=== PATIENT | male | born 1950 | race Caucasian/White ===

== ENCOUNTER 2017-06-26 06:56 | Inpatient (IN) | payer OTHER ==
[~2017-06-26] VITALS: Ht 172.7 cm; Wt 86.4 kg
[~2017-06-26 06:56] MED LIST: ACEDIPPM PO; ACET500 PO; ALBUIS INH; ALGIN; APRE80 PO; ASCO1ER PO; BUDE6HFA INH; CEFU500 PO; CHLO25 PO; CIPR500 PO; CLON.5; CLON1 PO; CYAN1000 PO; DULO30 PO; ENSURE COMPLET237 ML PO; FERR325 PO; FLUSAL5005 IH; FOLI1 PO; FORMOTEROL; GABA600 PO; LEVFLO500 PO; LORA1 PO; MAGOXI400 PO; MIRT30 PO; MULVITA PO; MULVITMIND PO; MVI; NICO21TP TOP; OMEGA-3; OMEP20ER PO; ONDA4 PO; ONDA4ODT MM; ONDA8ODT MM; Omeprazole20 M1 PO; QUET300 PO; RANI150 PO; ROPI1 PO; STRESS FORMULA; TERA5 PO; TERAZOSIN PO; THEO300ERA PO; THERAPEUTIC-M1 EAC3 PO; TIOT18 IH; TRAZ100 PO; VENL37.5 PO; VENL75ER PO; VICKS NYQUIL; VITAMIN B COMPLEX; VITB100 PO; [UNRECOGNIZED DRUG - CODE] PO; [UNRECOGNIZED DRUG - OTHER]; [UNRECOGNIZED DRUG - OTHER]
[2017-06-26 07:41] LABS: BASOPHILS ABSOLUTE AUTO 0.01 K/mm3 (0.00-0.23); BASOPHILS PERCENT AUTO 0 % (0-2); EOSINOPHILS PERCENT AUTO 0 % (0-6); Hematocrit 34.4 % (37.0-53.0); Hemoglobin 11.4 g/dL (13.5-17.5); IMMATURE GRAN ABSOLUTE AUTO 0.08 K/mm3 (0.00-0.10); IMMATURE GRAN PERCENT AUTO 1 % (0-1); LYMPHOCYTES ABSOLUTE AUTO 0.72 K/mm3 (0.84-5.20); LYMPHOCYTES PERCENT AUTO 5 % (21-46); MONOCYTES PERCENT AUTO 9 % (4-13); Mean Corpuscular HGB 31.9 pg (26.0-34.0); Mean Corpuscular HGB Conc 33.1 g/dL (31.5-36.5); Mean Corpuscular Volume 96 fL (80-100); Mean Platelet Volume 11.1 fL (9.1-12.4); NEUTROPHILS ABSOLUTE AUTO 13.68 K/mm3 (1.96-9.15); NEUTROPHILS PERCENT AUTO 86 % (41-73); Platelet Count 139 K/mm3 (150-400); RDW Coefficient Variation 13.2 % (11.7-14.2); RDW Standard Deviation 46.5 fL (35.1-46.3); Red Blood Cell Count 3.57 M/mm3 (4.30-5.90); White Blood Cell Count 15.89 K/mm3 (4.00-11.30)
[2017-06-26 07:55] LABS: Alanine Aminotransfer (ALT/SGP 32 U/L (12-78); Albumin, Blood 3.2 g/dL (3.4-5.0); Alk Phos 122 U/L (50-136); Anion Gap 13 mmol/L (6-16); Aspartate Aminotrans (AST/SGOT 32 U/L (12-37); Bilirubin, Total 0.9 mg/dL (0.1-1.0); Blood Urea Nitrogen 52 mg/dL (8-24); Bun/Creatinine Ratio 43.7 (12.0-20.0); CO2, Blood 28 mmol/L (21-32); Calcium, Blood 7.9 mg/dL (8.5-10.1); Chloride, Blood 100 mmol/L (98-108); Creatinine, Blood 1.19 mg/dL (0.60-1.20); Globulin, Blood 3.3 g/dL (2.2-4.0); Glomerular Filtration Rate >60 (60-); Glucose, Blood 236 mg/dL (70-99); Potassium, Blood 3.9 mmol/L (3.5-5.5); Sodium, Blood 141 mmol/L (136-145); Total Protein, Blood 6.5 g/dL (6.4-8.2)
[2017-06-26 07:59] LABS: International Normalized Ratio 1.07; Prothrombin Time Results 11.2 Sec (9.7-11.5)
[2017-06-26 08:34] LABS: Source, Urine Voided
[2017-06-26 08:51] LABS: Bilirubin, Urine Neg (Neg); Blood, Urine 1+ (Neg); Glucose Qualitative, Urine Neg (Neg); Ketones, Urine 1+ (Neg); Leukocyte Esterase, Urine 1+ (Neg); Nitrite, Urine Neg (Neg); Protein, Urine 2+ (Neg); Specific Gravity, Urine 1.025 (1.003-1.022); Urobilinogen, Urine 1+ (Normal)
[2017-06-26 09:07] LABS: Appearance, Urine Hazy (Clear); Color, Urine Yellow (P-Yellow)
[2017-06-26 09:15] LABS: Red Blood Cells, Urine 0-2 /hpf (0-2); White Blood Cells, Urine 0-2 /hpf (0-5)
[2017-06-26 09:18] LABS: Bacteria Few /hpf; Squamous Epithelial Cells Few /hpf (Few)
[2017-06-26 14:42] LABS: Hematocrit 22.1 % (37.0-53.0); Hemoglobin 7.5 g/dL (13.5-17.5); Mean Corpuscular HGB 31.9 pg (26.0-34.0); Mean Corpuscular HGB Conc 33.9 g/dL (31.5-36.5); Mean Corpuscular Volume 94 fL (80-100); Mean Platelet Volume 10.8 fL (9.1-12.4); Platelet Count 113 K/mm3 (150-400); RDW Coefficient Variation 13.4 % (11.7-14.2); RDW Standard Deviation 45.8 fL (35.1-46.3); Red Blood Cell Count 2.35 M/mm3 (4.30-5.90)
[2017-06-26 16:11] LABS: Magnesium, Blood 1.7 mg/dL (1.6-2.4); Phosphorus, Blood 1.9 mg/dL (2.5-4.9)
[2017-06-26 20:24] LABS: Hematocrit 20.7 % (37.0-53.0); Hemoglobin 7.1 g/dL (13.5-17.5)
[2017-06-27 00:54] LABS: Hematocrit 24.7 % (37.0-53.0); Hemoglobin 8.5 g/dL (13.5-17.5)
[2017-06-27 04:58] LABS: BASOPHILS ABSOLUTE AUTO 0.01 K/mm3 (0.00-0.23); BASOPHILS PERCENT AUTO 0 % (0-2); EOSINOPHILS PERCENT AUTO 0 % (0-6); Hematocrit 24.3 % (37.0-53.0); Hemoglobin 8.5 g/dL (13.5-17.5); IMMATURE GRAN ABSOLUTE AUTO 0.08 K/mm3 (0.00-0.10); IMMATURE GRAN PERCENT AUTO 1 % (0-1); LYMPHOCYTES ABSOLUTE AUTO 2.02 K/mm3 (0.84-5.20); LYMPHOCYTES PERCENT AUTO 16 % (21-46); MONOCYTES ABSOLUTE AUTO 1.07 K/mm3 (0.16-1.47); MONOCYTES PERCENT AUTO 8 % (4-13); Mean Corpuscular HGB 30.2 pg (26.0-34.0); Mean Platelet Volume 10.9 fL (9.1-12.4); NEUTROPHILS ABSOLUTE AUTO 9.73 K/mm3 (1.96-9.15); NEUTROPHILS PERCENT AUTO 75 % (41-73); NRBC ABSOLUTE 0.03 K/mm3 (0.00-0.02); NRBC Auto 0.3 /100 WBC (0.0-0.2); Platelet Count 70 K/mm3 (150-400); RDW Coefficient Variation 15.2 % (11.7-14.2); RDW Standard Deviation 47.6 fL (35.1-46.3); Red Blood Cell Count 2.81 M/mm3 (4.30-5.90); White Blood Cell Count 12.91 K/mm3 (4.00-11.30)
[2017-06-27 04:59] LABS: Mean Corpuscular Volume 87 fL (80-100)
[2017-06-27 05:14] LABS: Magnesium, Blood 1.8 mg/dL (1.6-2.4)
[2017-06-27 05:53] LABS: Albumin/Globulin Ratio 1.1 (0.8-1.8); Bilirubin, Total 0.6 mg/dL (0.1-1.0); Bun/Creatinine Ratio 37.2 (12.0-20.0); Creatinine, Blood 1.45 mg/dL (0.60-1.20); Globulin, Blood 1.9 g/dL (2.2-4.0); Phosphorus, Blood 2.4 mg/dL (2.5-4.9); Potassium, Blood 4.3 mmol/L (3.5-5.5)
[2017-06-27 05:54] LABS: Calcium, Blood 6.2 mg/dL (8.5-10.1); Total Protein, Blood 3.9 g/dL (6.4-8.2)
[2017-06-27 12:02] LABS: Hematocrit 22.4 % (37.0-53.0); Hemoglobin 7.7 g/dL (13.5-17.5)
[2017-06-27 18:36] LABS: Hematocrit 20.9 % (37.0-53.0); Hemoglobin 7.2 g/dL (13.5-17.5)
[2017-06-28 03:30] LABS: Hematocrit 20.2 % (37.0-53.0)
[2017-06-29 05:26] LABS: BASOPHILS ABSOLUTE AUTO 0.02 K/mm3 (0.00-0.23); BASOPHILS PERCENT AUTO 0 % (0-2); EOSINOPHILS ABSOLUTE AUTO 0.17 K/mm3 (0.00-0.68); EOSINOPHILS PERCENT AUTO 3 % (0-6); Hematocrit 23.6 % (37.0-53.0); Hemoglobin 8.2 g/dL (13.5-17.5); IMMATURE GRAN ABSOLUTE AUTO 0.17 K/mm3 (0.00-0.10); IMMATURE GRAN PERCENT AUTO 3 % (0-1); LYMPHOCYTES ABSOLUTE AUTO 1.64 K/mm3 (0.84-5.20); LYMPHOCYTES PERCENT AUTO 25 % (21-46); MONOCYTES ABSOLUTE AUTO 0.55 K/mm3 (0.16-1.47); MONOCYTES PERCENT AUTO 8 % (4-13); Mean Corpuscular HGB 31.2 pg (26.0-34.0); Mean Corpuscular HGB Conc 34.7 g/dL (31.5-36.5); Mean Platelet Volume 9.8 fL (9.1-12.4); NEUTROPHILS ABSOLUTE AUTO 4.02 K/mm3 (1.96-9.15); NEUTROPHILS PERCENT AUTO 61 % (41-73); NRBC ABSOLUTE 0.15 K/mm3 (0.00-0.02); NRBC Auto 2.2 /100 WBC (0.0-0.2); Platelet Count 105 K/mm3 (150-400); RDW Coefficient Variation 15.9 % (11.7-14.2); RDW Standard Deviation 51.7 fL (35.1-46.3); Red Blood Cell Count 2.63 M/mm3 (4.30-5.90); White Blood Cell Count 6.57 K/mm3 (4.00-11.30)
[2017-06-29 05:28] LABS: Mean Corpuscular Volume 90 fL (80-100)
[2017-06-29 05:50] LABS: Alanine Aminotransfer (ALT/SGP 24 U/L (12-78); Albumin, Blood 2.5 g/dL (3.4-5.0); Alk Phos 66 U/L (50-136); Anion Gap 6 mmol/L (6-16); Aspartate Aminotrans (AST/SGOT 30 U/L (12-37); Bilirubin, Total 0.5 mg/dL (0.1-1.0); Blood Urea Nitrogen 12 mg/dL (8-24); Bun/Creatinine Ratio 14.3 (12.0-20.0); CO2, Blood 26 mmol/L (21-32); Calcium, Blood 6.7 mg/dL (8.5-10.1); Chloride, Blood 112 mmol/L (98-108); Creatinine, Blood 0.84 mg/dL (0.60-1.20); Globulin, Blood 2.5 g/dL (2.2-4.0); Glomerular Filtration Rate >60 (60-); Glucose, Blood 95 mg/dL (70-99); Potassium, Blood 3.2 mmol/L (3.5-5.5); Sodium, Blood 144 mmol/L (136-145)
== END 2017-06-29 13:50 | disposition home or self-care (01) | DRG 381 ==
LOC: ER 06:56 → PCU 10:03 → ICUE 10:03 → MEDS 06-28 18:17 → ENPENDDIS 06-29 12:00 → MEDS 06-29 13:50
PROVIDERS: Emergency Medicine; Hospitalist; Internal Medicine Endocrinology, Diabetes & Metabolism; Internal Medicine Gastroenterology
PROC: 0W3P8ZZ Control Bleeding in Gastrointestinal Tract, Via Natural or Artificial Opening Endoscopic (ICD-10-PCS; 2017-06-26)
PROC: 0DB98ZZ Excision of Duodenum, Via Natural or Artificial Opening Endoscopic (ICD-10-PCS; 2017-06-26)
PROC: 30233N1 Transfusion of Nonautologous Red Blood Cells into Peripheral Vein, Percutaneous Approach (ICD-10-PCS; principal; 2017-06-26 17:00)
DX: K22.11 Ulcer of esophagus with bleeding (principal); D62 Acute posthemorrhagic anemia; I95.9 Hypotension, unspecified; D69.6 Thrombocytopenia, unspecified; K76.6 Portal hypertension; J44.9 Chronic obstructive pulmonary disease, unspecified; F10.239 Alcohol dependence with withdrawal, unspecified; K70.30 Alcoholic cirrhosis of liver without ascites; E87.6 Hypokalemia; F43.10 Post-traumatic stress disorder, unspecified; G47.33 Obstructive sleep apnea (adult) (pediatric); Z93.3 Colostomy status; K21.9 Gastro-esophageal reflux disease without esophagitis; Z79.01 Long term (current) use of anticoagulants; Z85.118 Personal history of other malignant neoplasm of bronchus and lung; Z92.21 Personal history of antineoplastic chemotherapy; F17.210 Nicotine dependence, cigarettes, uncomplicated; K63.5 Polyp of colon
CPT/HCPCS: 36415; 36430; 36569; 51702; 51798; 74176; 80053; 81001; 83735; 84100; 85014; 85018; 85025; 85027; 85610; 85730; 86850; 86900; 86901; 86923; 93005; 93010; 94762; 96361; 96365; 96366; 96375; 99285; C1751; C1894; C9113; J0696; J2060; J2370; J2405; J3411; J3475; J7030; J7042; J7050; J7120; P9016; Q9968

== ENCOUNTER 2018-06-21 01:49 | Emergency (ER) | payer OTHER, MEDICARE ==
[~2018-06-21] VITALS: Ht 182.9 cm; Wt 113.4 kg
== END 2018-06-21 05:13 | disposition home or self-care (01) ==
LOC: ER 01:49
DX: F41.9 Anxiety disorder, unspecified (principal); Z72.89 Other problems related to lifestyle; Z88.0 Allergy status to penicillin; Z88.2 Allergy status to sulfonamides; Z79.899 Other long term (current) drug therapy; F43.10 Post-traumatic stress disorder, unspecified; F32.9 Major depressive disorder, single episode, unspecified; F17.210 Nicotine dependence, cigarettes, uncomplicated
CPT/HCPCS: 96372; 99283-25; J2060

== ENCOUNTER 2018-07-02 15:49 | Emergency (ER) | payer OTHER, MEDICARE ==
[~2018-07-02] VITALS: Ht 172.7 cm; Wt 83.9 kg
[2018-07-02 16:37] LABS: BASOPHILS ABSOLUTE AUTO 0.03 K/mm3 (0.00-0.23); BASOPHILS PERCENT AUTO 1 % (0-2); EOSINOPHILS ABSOLUTE AUTO 0.01 K/mm3 (0.00-0.68); EOSINOPHILS PERCENT AUTO 0 % (0-6); Hematocrit 42.7 % (37.0-53.0); Hemoglobin 14.1 g/dL (13.5-17.5); IMMATURE GRAN ABSOLUTE AUTO 0.02 K/mm3 (0.00-0.10); IMMATURE GRAN PERCENT AUTO 0 % (0-1); LYMPHOCYTES ABSOLUTE AUTO 1.24 K/mm3 (0.84-5.20); LYMPHOCYTES PERCENT AUTO 20 % (21-46); MONOCYTES ABSOLUTE AUTO 0.64 K/mm3 (0.16-1.47); MONOCYTES PERCENT AUTO 11 % (4-13); Mean Corpuscular HGB 32.5 pg (26.0-34.0); Mean Corpuscular Volume 98 fL (80-100); Mean Platelet Volume 10.7 fL (9.1-12.4); NEUTROPHILS ABSOLUTE AUTO 4.14 K/mm3 (1.96-9.15); NEUTROPHILS PERCENT AUTO 68 % (41-73); Platelet Count 146 K/mm3 (150-400); RDW Coefficient Variation 14.8 % (11.7-14.2); RDW Standard Deviation 53.4 fL (35.1-46.3); Red Blood Cell Count 4.34 M/mm3 (4.30-5.90); White Blood Cell Count 6.08 K/mm3 (4.00-11.30)
[2018-07-02 16:49] LABS: Alanine Aminotransfer (ALT/SGP 33 U/L (12-78); Albumin, Blood 3.1 g/dL (3.4-5.0); Albumin/Globulin Ratio 0.8 (0.8-1.8); Alk Phos 151 U/L (50-136); Anion Gap 8 mmol/L (6-16); Aspartate Aminotrans (AST/SGOT 34 U/L (12-37); Bilirubin, Total 0.9 mg/dL (0.1-1.0); Blood Urea Nitrogen 24 mg/dL (8-24); CO2, Blood 31 mmol/L (21-32); Calcium, Blood 7.6 mg/dL (8.5-10.1); Chloride, Blood 104 mmol/L (98-108); Globulin, Blood 4.1 g/dL (2.2-4.0); Glomerular Filtration Rate >60 (60-); Glucose, Blood 109 mg/dL (70-99); Potassium, Blood 3.1 mmol/L (3.5-5.5); Sodium, Blood 143 mmol/L (136-145); Total Protein, Blood 7.2 g/dL (6.4-8.2)
[2018-07-02] MEDS ORDERED: Ativan1 MG PO (18:18)
== END 2018-07-02 19:32 | disposition home or self-care (01) ==
LOC: ER 15:49
PROVIDERS: Physician Assistant
DX: F10.239 Alcohol dependence with withdrawal, unspecified (principal); F41.9 Anxiety disorder, unspecified; F32.9 Major depressive disorder, single episode, unspecified; F17.210 Nicotine dependence, cigarettes, uncomplicated; Z88.0 Allergy status to penicillin; Z88.2 Allergy status to sulfonamides; Z79.899 Other long term (current) drug therapy
CPT/HCPCS: 36415; 80053; 85025; 93005; 93010; 96374; 99285-25; J2060

== ENCOUNTER 2018-10-06 08:41 | Emergency (ER) | payer MEDICARE, OTHER ==
[~2018-10-06] VITALS: Ht 172.7 cm; Wt 83.9 kg
[~2018-10-06 08:41] MED LIST changes: +Ativan1 MG PO
[2018-10-06] MEDS ORDERED: TAMS.4ER PO (09:08)
[2018-10-06] MEDS ORDERED: SILDENAFIL CIT100 MG PO (09:08)
[2018-10-06] MEDS ORDERED: SULI150 PO (09:08)
[2018-10-06 09:40] LABS: BASOPHILS ABSOLUTE AUTO 0.01 K/mm3 (0.00-0.23); BASOPHILS PERCENT AUTO 0 % (0-2); EOSINOPHILS PERCENT AUTO 0 % (0-6); Hematocrit 42.8 % (37.0-53.0); Hemoglobin 14.1 g/dL (13.5-17.5); IMMATURE GRAN ABSOLUTE AUTO 0.02 K/mm3 (0.00-0.10); IMMATURE GRAN PERCENT AUTO 0 % (0-1); LYMPHOCYTES PERCENT AUTO 12 % (21-46); MONOCYTES ABSOLUTE AUTO 0.74 K/mm3 (0.16-1.47); MONOCYTES PERCENT AUTO 9 % (4-13); Mean Corpuscular HGB 32.9 pg (26.0-34.0); Mean Corpuscular HGB Conc 32.9 g/dL (31.5-36.5); Mean Corpuscular Volume 100 fL (80-100); Mean Platelet Volume 11.3 fL (9.1-12.4); NEUTROPHILS ABSOLUTE AUTO 6.94 K/mm3 (1.96-9.15); NEUTROPHILS PERCENT AUTO 80 % (41-73); Platelet Count 141 K/mm3 (150-400); RDW Coefficient Variation 13.7 % (11.7-14.2); RDW Standard Deviation 50.1 fL (35.1-46.3); Red Blood Cell Count 4.28 M/mm3 (4.30-5.90); White Blood Cell Count 8.71 K/mm3 (4.00-11.30)
[2018-10-06 10:09] LABS: Alanine Aminotransfer (ALT/SGP 51 U/L (12-78); Albumin, Blood 3.3 g/dL (3.4-5.0); Albumin/Globulin Ratio 1.1 (0.8-1.8); Alk Phos 94 U/L (50-136); Anion Gap 5 mmol/L (6-16); Aspartate Aminotrans (AST/SGOT 62 U/L (12-37); Bilirubin, Total 0.5 mg/dL (0.1-1.0); Blood Urea Nitrogen 33 mg/dL (8-24); Bun/Creatinine Ratio 26.4 (12.0-20.0); CO2, Blood 32 mmol/L (21-32); Calcium, Blood 7.8 mg/dL (8.5-10.1); Chloride, Blood 106 mmol/L (98-108); Creatinine, Blood 1.25 mg/dL (0.60-1.20); Glomerular Filtration Rate >60 (60-); Glucose, Blood 152 mg/dL (70-99); Potassium, Blood 3.9 mmol/L (3.5-5.5); Sodium, Blood 143 mmol/L (136-145); Total Protein, Blood 6.3 g/dL (6.4-8.2); Troponin I <0.015 ng/mL (0.000-0.040)
== END 2018-10-06 14:14 | disposition home or self-care (01) ==
LOC: ER 08:41
PROVIDERS: Physician Assistant
DX: S09.90XA Unspecified injury of head, initial encounter (principal); F10.129 Alcohol abuse with intoxication, unspecified; F43.10 Post-traumatic stress disorder, unspecified; F32.9 Major depressive disorder, single episode, unspecified; F17.210 Nicotine dependence, cigarettes, uncomplicated; Z88.2 Allergy status to sulfonamides; Z88.0 Allergy status to penicillin; Z79.899 Other long term (current) drug therapy; W18.30XA Fall on same level, unspecified, initial encounter
CPT/HCPCS: 70450; 72100; 73030; 80053; 81000; 84484; 85025; 93005; 93010; 96360; 99285-25; J7120

== ENCOUNTER 2018-10-26 11:44 | Inpatient (IN) | payer MEDICARE, OTHER ==
[~2018-10-26] VITALS: Ht 177.8 cm; Wt 80.6 kg
[~2018-10-26 11:44] MED LIST changes: -DULO30 PO; -GABA600 PO; -MIRT30 PO; -QUET300 PO; +SILDENAFIL CIT100 MG PO; +SULI150 PO
[2018-10-26] MEDS ORDERED: CLON1 PO (12:07)
[2018-10-26] MEDS ORDERED: LO-DOSE ASPIRIN81 MG PO (12:08)
[2018-10-26 12:19] LABS: BASOPHILS ABSOLUTE AUTO 0.02 K/mm3 (0.00-0.23); BASOPHILS PERCENT AUTO 0 % (0-2); EOSINOPHILS PERCENT AUTO 0 % (0-6); Hemoglobin 17.2 g/dL (13.5-17.5); IMMATURE GRAN PERCENT AUTO 1 % (0-1); LYMPHOCYTES ABSOLUTE AUTO 0.67 K/mm3 (0.84-5.20); LYMPHOCYTES PERCENT AUTO 6 % (21-46); MONOCYTES ABSOLUTE AUTO 0.94 K/mm3 (0.16-1.47); MONOCYTES PERCENT AUTO 8 % (4-13); Mean Corpuscular HGB 32.8 pg (26.0-34.0); Mean Corpuscular HGB Conc 33.1 g/dL (31.5-36.5); Mean Corpuscular Volume 99 fL (80-100); Mean Platelet Volume 11.2 fL (9.1-12.4); NEUTROPHILS ABSOLUTE AUTO 9.49 K/mm3 (1.96-9.15); NEUTROPHILS PERCENT AUTO 85 % (41-73); Platelet Count 158 K/mm3 (150-400); RDW Coefficient Variation 14.5 % (11.7-14.2); RDW Standard Deviation 52.6 fL (35.1-46.3); Red Blood Cell Count 5.24 M/mm3 (4.30-5.90); White Blood Cell Count 11.22 K/mm3 (4.00-11.30)
[2018-10-26 12:27] LABS: International Normalized Ratio 1.14; Prothrombin Time Results 11.9 Sec (9.7-11.5)
[2018-10-26 12:37] LABS: Ethanol (Alcohol), Blood, Med 88 mg/dL
[2018-10-26 12:51] LABS: Alanine Aminotransfer (ALT/SGP 36 U/L (12-78); Albumin, Blood 3.3 g/dL (3.4-5.0); Alk Phos 152 U/L (50-136); Anion Gap 11 mmol/L (6-16); Aspartate Aminotrans (AST/SGOT 25 U/L (12-37); Bilirubin, Total 0.6 mg/dL (0.1-1.0); Blood Urea Nitrogen 35 mg/dL (8-24); Bun/Creatinine Ratio 20.5 (12.0-20.0); CO2, Blood 28 mmol/L (21-32); CPK Creatine Kinase 79 U/L (39-308); Calcium, Blood 8.1 mg/dL (8.5-10.1); Chloride, Blood 102 mmol/L (98-108); Creatinine, Blood 1.71 mg/dL (0.60-1.20); Globulin, Blood 3.3 g/dL (2.2-4.0); Glomerular Filtration Rate 42 (60-); Glucose, Blood 130 mg/dL (70-99); Potassium, Blood 3.8 mmol/L (3.5-5.5); Sodium, Blood 141 mmol/L (136-145); Total Protein, Blood 6.6 g/dL (6.4-8.2); Troponin I <0.015 ng/mL (0.000-0.040)
[2018-10-26 13:19] LABS: Source, Urine Clean Catch
[2018-10-26 13:27] LABS: Bilirubin, Urine Neg (Neg); Blood, Urine Neg (Neg); Glucose Qualitative, Urine Neg (Neg); Ketones, Urine Neg (Neg); Leukocyte Esterase, Urine Neg (Neg); Nitrite, Urine Neg (Neg); Protein, Urine Neg (Neg); Urobilinogen, Urine NORM (Normal)
[2018-10-26 13:32] LABS: Appearance, Urine Clear (Clear); Color, Urine Yellow (P-Yellow)
[2018-10-26] MEDS ORDERED: Cymbalta20 MG PO (16:31)
[2018-10-26] MEDS ORDERED: QUET300 PO (16:33)
[2018-10-26] MEDS ORDERED: PANT40 PO (16:33)
[2018-10-26] MEDS ORDERED: MIRT15 PO (16:35)
[2018-10-26] MEDS ORDERED: EQ ANTACID PO (16:37)
[2018-10-26] MEDS ORDERED: CHOL10002 PO (16:37)
[2018-10-26] MEDS ORDERED: FOLI1 PO (16:38)
[2018-10-26] MEDS ORDERED: GABA300 PO (16:39)
[2018-10-26] MEDS ORDERED: GABA600 PO (16:39)
[2018-10-26] MEDS ORDERED: MAGOXI400 PO (16:40)
[2018-10-26] MEDS ORDERED: TIZANIDINE HCL4 MG PO (16:42)
[2018-10-26] MEDS ORDERED: ZOLP5 PO (16:43)
[2018-10-26] MEDS ORDERED: TAMS.4ER PO (16:49)
[2018-10-26] MEDS ORDERED: Ferrous Sulfat325 M2 PO (18:07)
[2018-10-26] MEDS ORDERED: Hydroxyzine HCl50 MG PO (18:08)
[2018-10-26] MEDS ORDERED: LORA1 PO (18:09)
[2018-10-26] MEDS ORDERED: Ropinirole HCl1 MG PO (18:11)
[2018-10-26] MEDS ORDERED: SILDENAFIL CIT100 MG PO (18:12)
[2018-10-26] MEDS ORDERED: B-1100 MG PO (18:13)
[2018-10-26] MEDS ORDERED: B-COMPLEX WITH1 EAC2 PO (18:14)
[2018-10-26] MEDS ORDERED: Omega-31000 MG PO (18:15)
[2018-10-26] MEDS ORDERED: POTASSIUM99 MG PO (18:16)
--- NOTE | 2018-10-26 19:18 | NUR ---
SHIFT SUMMARY- PT TRANSFERED FROM MEDICAL FLOOR, NO ACUTE CHANGES SINCE TRANSFER PASSED ON REPORT RECIEVED TO NIGHT RN.
--- NOTE | 2018-10-26 20:08 | NUR ---
ADMIT NOTE/SHIFT SUMMARY RECEIVED REPORT FROM ELAINA TORRES RN IN ED. PT TO ROOM VIA GURNEY, 3 PERSON TRANSFER WITH SLIDER SHEET. PT AND DAUGHTER ORIENTED TO ROOM AND CALL LIGHT. PT/FAMILY EDUCATED ON FALL RISK AND USE OF CALL LIGHT. PT A&OX2. AGGITATED AND IRRITABLE WITH CARE. PT SPPECH SLURRED AND SLOW. CUSTOMER COUNTER REPRESENTATIVE AND PEDAL FLEX/EXTEN WEAK BUT EQUAL. PT REPORTS "MILD" PAIN IN ABD, TENDER ON PALPATION, DAUGHTER STATES THAT HAS BEEN GOING ON FOR A COUPLE OF WEEKS. PT HAS OSTOMY IN LL[place], HAS HAD FOR 15-20 YEARS. PT ON 1L O2 VIA NC, DENIES SOB. PT DENIES N/V. PT DAUGHTER REPORTS PT USING TELE BOX PHONE AND HAVING A CONVERSATION ON IT. CLARIFIED ORDER FOR D5 1/2NS W/ 20MEQ KCL, ORDERED IN ED, DR BREWER ORDER TO CONTINUE WITH THESE ORDERS. VSS. NO OTHER ACUTE CHANGES NOTED DUIRNG SHIFT. REPORT GIVEN TO HARJIT CURRIE IN SCU, PT TRANSFERED TO ROOM 350 THIS EVENING.
[2018-10-27 04:51] LABS: BASOPHILS ABSOLUTE AUTO 0.01 K/mm3 (0.00-0.23); BASOPHILS PERCENT AUTO 0 % (0-2); EOSINOPHILS ABSOLUTE AUTO 0.01 K/mm3 (0.00-0.68); EOSINOPHILS PERCENT AUTO 0 % (0-6); Hematocrit 41.6 % (37.0-53.0); Hemoglobin 13.7 g/dL (13.5-17.5); IMMATURE GRAN ABSOLUTE AUTO 0.05 K/mm3 (0.00-0.10); IMMATURE GRAN PERCENT AUTO 1 % (0-1); LYMPHOCYTES ABSOLUTE AUTO 0.73 K/mm3 (0.84-5.20); LYMPHOCYTES PERCENT AUTO 7 % (21-46); MONOCYTES ABSOLUTE AUTO 0.81 K/mm3 (0.16-1.47); MONOCYTES PERCENT AUTO 8 % (4-13); Mean Corpuscular HGB 33.3 pg (26.0-34.0); Mean Corpuscular HGB Conc 32.9 g/dL (31.5-36.5); Mean Corpuscular Volume 101 fL (80-100); Mean Platelet Volume 11.3 fL (9.1-12.4); NEUTROPHILS ABSOLUTE AUTO 9.11 K/mm3 (1.96-9.15); NEUTROPHILS PERCENT AUTO 85 % (41-73); Platelet Count 95 K/mm3 (150-400); RDW Coefficient Variation 14.5 % (11.7-14.2); RDW Standard Deviation 53.7 fL (35.1-46.3); Red Blood Cell Count 4.11 M/mm3 (4.30-5.90); White Blood Cell Count 10.72 K/mm3 (4.00-11.30)
[2018-10-27 05:07] LABS: Albumin, Blood 2.5 g/dL (3.4-5.0); Albumin/Globulin Ratio 0.9 (0.8-1.8); Bilirubin, Direct 0.3 mg/dL (0.0-0.3); Bilirubin, Indirect 0.5 mg/dL (0.1-0.7); Bilirubin, Total 0.8 mg/dL (0.1-1.0); Bun/Creatinine Ratio 20.3 (12.0-20.0); Calcium, Blood 7.3 mg/dL (8.5-10.1); Creatinine, Blood 1.72 mg/dL (0.60-1.20); Globulin, Blood 2.9 g/dL (2.2-4.0); Magnesium, Blood 1.4 mg/dL (1.6-2.4); Phosphorus, Blood 2.6 mg/dL (2.5-4.9); Potassium, Blood 4.2 mmol/L (3.5-5.5); Total Protein, Blood 5.4 g/dL (6.4-8.2)
--- NOTE | 2018-10-27 05:33 | NUR ---
Rn summary: Patient is alert most of the time, does have episodes of confusion, especially with O2 and IV tubing and tele monitor. Pt has seemed more clear the 2nd half of shift. Patient up frequently to BR at least q hour the first 8 hours of shift for urination. Pt needs 1 assist due to IV and Tele, seemed a bit impulsive. Pt has a colostomy which he self cares. Pt has had c/o abdominal discomfort across upper abdomen. Pt states pain is cramping in nature and comes and goes. Medicated with tylenol with minimal relief. Pt has fading bruise to left ribs, he states he feel recently at home. Patient has had no signs of ETOH withdrawl this shift. Pt states last drink was Friday Night. Pt does use the call light. Bed alarm is on. Will continue to monitor closely.
--- NOTE | 2018-10-27 13:30 | NUR ---
Patient is lying on his side and states immediately that his stomach hurts and that he can't get comfortable. Patient is open about his alcoholism and understands that he needs to always be in a support group every week. Patient shares about his family unit complications, about the disaster his drinking has created for himself and others and his personal kind of spirituality. I listened empathically, provided spiritual guidance, provided companionship, reinforced helpful attitudes and practices and provided prayer. Patient responded well and showed signs of renewed doug. Patient voiced appreciation for the visit.
[2018-10-27 14:30] LABS: Source, Urine Clean Catch
[2018-10-27 14:52] LABS: Appearance, Urine Hazy (Clear); Bilirubin, Urine Neg (Neg); Blood, Urine 5+ (Neg); Color, Urine Amber (P-Yellow); Glucose Qualitative, Urine Neg (Neg); Ketones, Urine Neg (Neg); Leukocyte Esterase, Urine 1+ (Neg); Nitrite, Urine Neg (Neg); Protein, Urine 2+ (Neg); Specific Gravity, Urine 1.015 (1.003-1.022); Urobilinogen, Urine NORM (Normal)
[2018-10-27 16:09] LABS: Squamous Epithelial Cells Few /hpf (Few)
[2018-10-27 16:10] LABS: Bacteria Few /hpf; Red Blood Cells, Urine 50-100 /hpf (0-2)
--- NOTE | 2018-10-27 19:44 | NUR ---
PT. HAD CTUROGRAM TODAY
--- NOTE | 2018-10-28 05:24 | NUR ---
SHIFT SUMMARY PT ALERT AND ORIENTED. REQUESTING NIGHT TIME MEDS TO BE ORDERED. HOSPITALIST NOTIFIED, BUT WERE NOT REORDERED. PT HAS BEEN UP TO BATHROOM WITH SBA. IVF'S RESTARTED AT 250 ML'S/HR OF NS. TELEMETRY HAS BEEN SINUS TACH ALL NIGHT IN THE LOW 100'S. CALLED THIS AM AFTER PT HAD BEEN UP AND IN THE 130'S. WILL MONITOR TO SEE IF PT TRENDS DOWN. PT DENIES ANY SHORTNESS OF BREATH OR CHEST PAIN. STATES HE DOESN'T FEEL ANY FLUTTERING EITHER. ALL OTHER VS WNL. WILL CONTINUE TO MONITOR.
[2018-10-28 05:29] LABS: BASOPHILS ABSOLUTE AUTO 0.01 K/mm3 (0.00-0.23); BASOPHILS PERCENT AUTO 0 % (0-2); EOSINOPHILS PERCENT AUTO 0 % (0-6); Hematocrit 40.1 % (37.0-53.0); Hemoglobin 13.5 g/dL (13.5-17.5); IMMATURE GRAN ABSOLUTE AUTO 0.13 K/mm3 (0.00-0.10); IMMATURE GRAN PERCENT AUTO 1 % (0-1); LYMPHOCYTES ABSOLUTE AUTO 0.84 K/mm3 (0.84-5.20); LYMPHOCYTES PERCENT AUTO 8 % (21-46); MONOCYTES ABSOLUTE AUTO 0.69 K/mm3 (0.16-1.47); MONOCYTES PERCENT AUTO 6 % (4-13); Mean Corpuscular HGB 33.3 pg (26.0-34.0); Mean Corpuscular HGB Conc 33.7 g/dL (31.5-36.5); Mean Corpuscular Volume 99 fL (80-100); Mean Platelet Volume 12.2 fL (9.1-12.4); NEUTROPHILS PERCENT AUTO 85 % (41-73); Platelet Count 86 K/mm3 (150-400); RDW Coefficient Variation 14.9 % (11.7-14.2); Red Blood Cell Count 4.06 M/mm3 (4.30-5.90); White Blood Cell Count 10.87 K/mm3 (4.00-11.30)
[2018-10-28 05:46] LABS: Anion Gap 6 mmol/L (6-16); Blood Urea Nitrogen 21 mg/dL (8-24); Bun/Creatinine Ratio 17.9 (12.0-20.0); CO2, Blood 28 mmol/L (21-32); Calcium, Blood 7.6 mg/dL (8.5-10.1); Chloride, Blood 108 mmol/L (98-108); Creatinine, Blood 1.17 mg/dL (0.60-1.20); Glomerular Filtration Rate >60 (60-); Glucose, Blood 73 mg/dL (70-99); Potassium, Blood 4.5 mmol/L (3.5-5.5); Sodium, Blood 142 mmol/L (136-145)
--- NOTE | 2018-10-28 05:51 | NUR ---
PT HEART RATE TRENDING BACK DOWN, HAS BEEN LYING IN BED RESTING. WILL CONTINUE TO MONITOR.
--- NOTE | 2018-10-28 18:44 | NUR ---
PT. LYING IN BED AT THIS TIME. HAS BEEN OUT TO SMOKE 2 TIMES WITH DAUGHTER IN . HAS REFUSED TO EAT ONLY WANTS MILK TO DRINK. STILL WANTING MEDS DR. BREWER DISCONTINUED.
--- NOTE | 2018-10-29 05:53 | NUR ---
SHIFT SUMMARY PT HAS NOT SLEPT MUCH TONIGHT, STATES TOO MANY ALARMS GOING OFF DURING THE NIGHT. PT HOPES TO RETURN HOME TODAY. DID HAVE AN EPISODE TONIGHT WHERE HE THOUGHT HE HEARD KIDS TALKING IN THE HALLWAY. OTHERWISE HAS BEEN ALERT AND ORIENTED. HAS BEEN MEDICATED X 2 FOR PAIN T/O NIGHT. WILL CONTINUE TO MONITOR.
[2018-10-29 08:38] LABS: BASOPHILS ABSOLUTE AUTO 0.02 K/mm3 (0.00-0.23); BASOPHILS PERCENT AUTO 0 % (0-2); EOSINOPHILS ABSOLUTE AUTO 0.02 K/mm3 (0.00-0.68); EOSINOPHILS PERCENT AUTO 0 % (0-6); Hematocrit 36.8 % (37.0-53.0); Hemoglobin 12.4 g/dL (13.5-17.5); IMMATURE GRAN ABSOLUTE AUTO 0.06 K/mm3 (0.00-0.10); IMMATURE GRAN PERCENT AUTO 1 % (0-1); LYMPHOCYTES ABSOLUTE AUTO 0.63 K/mm3 (0.84-5.20); LYMPHOCYTES PERCENT AUTO 7 % (21-46); MONOCYTES ABSOLUTE AUTO 0.66 K/mm3 (0.16-1.47); MONOCYTES PERCENT AUTO 7 % (4-13); Mean Corpuscular HGB 33.2 pg (26.0-34.0); Mean Corpuscular HGB Conc 33.7 g/dL (31.5-36.5); Mean Corpuscular Volume 98 fL (80-100); Mean Platelet Volume 11.8 fL (9.1-12.4); NEUTROPHILS ABSOLUTE AUTO 8.17 K/mm3 (1.96-9.15); NEUTROPHILS PERCENT AUTO 86 % (41-73); Platelet Count 81 K/mm3 (150-400); RDW Coefficient Variation 15.5 % (11.7-14.2); RDW Standard Deviation 55.3 fL (35.1-46.3); Red Blood Cell Count 3.74 M/mm3 (4.30-5.90); White Blood Cell Count 9.56 K/mm3 (4.00-11.30)
[2018-10-29 08:56] LABS: Alanine Aminotransfer (ALT/SGP 23 U/L (12-78); Albumin, Blood 2.1 g/dL (3.4-5.0); Albumin/Globulin Ratio 0.6 (0.8-1.8); Alk Phos 145 U/L (50-136); Anion Gap 10 mmol/L (6-16); Aspartate Aminotrans (AST/SGOT 24 U/L (12-37); Blood Urea Nitrogen 13 mg/dL (8-24); Bun/Creatinine Ratio 13.6 (12.0-20.0); CO2, Blood 21 mmol/L (21-32); Calcium, Blood 7.8 mg/dL (8.5-10.1); Chloride, Blood 111 mmol/L (98-108); Creatinine, Blood 0.95 mg/dL (0.60-1.20); Globulin, Blood 3.4 g/dL (2.2-4.0); Glomerular Filtration Rate >60 (60-); Glucose, Blood 62 mg/dL (70-99); Potassium, Blood 3.4 mmol/L (3.5-5.5); Sodium, Blood 142 mmol/L (136-145); Total Protein, Blood 5.5 g/dL (6.4-8.2)
[2018-10-29] MEDS ORDERED: LEVOFLOXACIN250 MG PO (11:44)
--- NOTE | 2018-10-29 12:45 | NUR ---
PATIENT D/C'D TO HOME WITH DAUGHTER. D/C INSTRUCTIONS AND EDUCATIONS DISCUSSED WITH PATIENT AND COPY PROVIDED. RX MEDICATIONS FA[facility]ED TO [facility]. PATIENT DENIES ANY FURTHER QUESTIONS OR CONCERNS.
== END 2018-10-29 12:46 | disposition home or self-care (01) | DRG 438 ==
LOC: ER 11:44 → MEDS 11:45 → ENPENDDIS 10-29 11:55 → MEDS 10-29 12:46
PROVIDERS: Emergency Medicine; ADMIT Student in an Organized Health Care Education/Training Program
DX: K85.20 Alcohol induced acute pancreatitis without necrosis or infection (principal); G92 Toxic encephalopathy; F10.239 Alcohol dependence with withdrawal, unspecified; R78.81 Bacteremia; G31.2 Degeneration of nervous system due to alcohol; M62.838 Other muscle spasm; F17.210 Nicotine dependence, cigarettes, uncomplicated; Z93.3 Colostomy status; F41.9 Anxiety disorder, unspecified; J44.9 Chronic obstructive pulmonary disease, unspecified; K70.30 Alcoholic cirrhosis of liver without ascites; Z86.711 Personal history of pulmonary embolism; Z86.718 Personal history of other venous thrombosis and embolism; R31.0 Gross hematuria
CPT/HCPCS: 36415; 51701; 70496; 71045; 71111; 74178; 80048; 80053; 80076; 81001; 81003; 82550; 83605; 83690; 83735; 84100; 84145; 84484; 85025; 85610; 87040; 87086; 93005; 93010; 96361-59; 96365-59; 99285-25; C9113; G0480; J0692; J1956; J3010; J3370; J7030; J7050; J7120; Q9967

== ENCOUNTER → 2019-01-13 | Outpatient (CLI) | payer OTHER, MEDICARE ==
[~2019-01-13] MED LIST changes: +B-1100 MG PO; +B-COMPLEX WITH1 EAC2 PO; +BUPR75 PO; +CHOL10002 PO; +Cymbalta20 MG PO; +EQ ANTACID PO; +Ferrous Sulfat325 M2 PO; +GABA300 PO; +GABA600 PO; +Hydroxyzine HCl50 MG PO; +LEVOFLOXACIN250 MG PO; +LO-DOSE ASPIRIN81 MG PO; +MIRT15 PO; +Omega-31000 MG PO; +PANT40 PO; +POTASSIUM99 MG PO; +QUET300 PO; +Ropinirole HCl1 MG PO; +TAMS.4ER PO; +TIZANIDINE HCL4 MG PO; +ZOLP5 PO
== END | disposition home or self-care (01) ==
LOC: LAB SHORT 10:57 → PLD 10:57
DX: D23.4 Other benign neoplasm of skin of scalp and neck (principal); L72.0 Epidermal cyst
CPT/HCPCS: 88304; 88305

== ENCOUNTER 2019-02-11 04:03 | Inpatient (IN) | payer MEDICARE, OTHER ==
[~2019-02-11] VITALS: Ht 172.7 cm; Wt 76.4 kg
[~2019-02-11 04:03] MED LIST changes: -BUPR75 PO
[2019-02-11 04:40] LABS: BASOPHILS ABSOLUTE AUTO 0.02 K/mm3 (0.00-0.23); BASOPHILS PERCENT AUTO 0 % (0-2); EOSINOPHILS PERCENT AUTO 0 % (0-6); Hematocrit 42.9 % (37.0-53.0); Hemoglobin 14.6 g/dL (13.5-17.5); IMMATURE GRAN ABSOLUTE AUTO 0.03 K/mm3 (0.00-0.10); IMMATURE GRAN PERCENT AUTO 0 % (0-1); LYMPHOCYTES ABSOLUTE AUTO 0.89 K/mm3 (0.84-5.20); LYMPHOCYTES PERCENT AUTO 10 % (21-46); MONOCYTES ABSOLUTE AUTO 1.15 K/mm3 (0.16-1.47); MONOCYTES PERCENT AUTO 13 % (4-13); Mean Corpuscular HGB 33.2 pg (26.0-34.0); Mean Corpuscular Volume 98 fL (80-100); Mean Platelet Volume 10.1 fL (9.1-12.4); NEUTROPHILS ABSOLUTE AUTO 7.02 K/mm3 (1.96-9.15); NEUTROPHILS PERCENT AUTO 77 % (41-73); Platelet Count 219 K/mm3 (150-400); RDW Standard Deviation 46.5 fL (35.1-46.3); White Blood Cell Count 9.11 K/mm3 (4.00-11.30)
[2019-02-11 05:03] LABS: Alanine Aminotransfer (ALT/SGP 35 U/L (12-78); Albumin, Blood 3.4 g/dL (3.4-5.0); Alk Phos 165 U/L (50-136); Anion Gap 12 mmol/L (6-16); Aspartate Aminotrans (AST/SGOT 74 U/L (12-37); Bilirubin, Total 0.6 mg/dL (0.1-1.0); Blood Urea Nitrogen 25 mg/dL (8-24); Bun/Creatinine Ratio 21.7 (12.0-20.0); CO2, Blood 26 mmol/L (21-32); Calcium, Blood 7.9 mg/dL (8.5-10.1); Chloride, Blood 105 mmol/L (98-108); Creatinine, Blood 1.15 mg/dL (0.60-1.20); Ethanol (Alcohol), Blood, Med 113 mg/dL; Globulin, Blood 3.5 g/dL (2.2-4.0); Glomerular Filtration Rate >60 (60-); Glucose, Blood 183 mg/dL (70-99); Potassium, Blood 3.4 mmol/L (3.5-5.5); Salicylate 3.2 mg/dL (2.8-20.0); Sodium, Blood 143 mmol/L (136-145); Total Protein, Blood 6.9 g/dL (6.4-8.2)
[2019-02-11 05:03] LABS: Source, Urine Clean Catch
[2019-02-11 05:05] LABS: Bilirubin, Urine Neg (Neg); Blood, Urine Neg (Neg); Glucose Qualitative, Urine Neg (Neg); Ketones, Urine 1+ (Neg); Leukocyte Esterase, Urine Neg (Neg); Nitrite, Urine Neg (Neg); Protein, Urine 2+ (Neg); Specific Gravity, Urine 1.025 (1.003-1.022); Urobilinogen, Urine 1+ (Normal)
[2019-02-11 05:07] LABS: Acetaminophen, Random <2.0 ug/mL (10.0-30.0)
[2019-02-11 05:17] LABS: Appearance, Urine Clear (Clear); Bacteria Not Seen /hpf; Color, Urine Yellow (P-Yellow); Red Blood Cells, Urine Not Seen /hpf (0-2); Squamous Epithelial Cells Not Seen /hpf (Few); White Blood Cells, Urine Not Seen /hpf (0-5)
[2019-02-11 05:22] LABS: U Amphetamine Screen Not Detected; U Barbituate Screen Not Detected; U Benzodiazapine Screen DETECTED; U Buprenorphine Screen Not Detected; U Cannabinoids Screen Not Detected; U Cocaine Screen Not Detected; U Methadone Screen Not Detected; U Methamphetamine Screen Not Detected; U Opiates Screen Not Detected; U Oxycodone Screen Not Detected; U Phencyclidine Screen Not Detected; U Propoxyphene Screen Not Detected
[2019-02-11] MEDS ORDERED: BUPR75 PO (06:12)
--- NOTE | 2019-02-11 06:40 | NUR ---
PT ARRIVED APPROX 0600 TO ROOM FROM ED. CIWA SCORE 3 FOR ANXIETY/AGITATION. TELE SHOWED SINUS TACH @ 115 PER PLANT CUSTODIAN. BED ALARM IN USE.
--- NOTE | 2019-02-11 14:59 | NUR ---
SHIFT SUMMARY NO ACUTE CHANGES. PATIENT DENIES PAIN AND SHORTNESS OF BREATH. PATIENT SCORING BETWEEN 6 AND 8 ON CIWA. GIVEN ATIVAN X3. PATIENT REQUESTED TO GO OUTSIDE TO SMOKE AND BECAME VERY AGITATED WHEN HE ADVISED AGAINST IT. DR. CALLEJAS SPOKE WITH PATIENT, TELE DC'D AND PATIENT OK'D TO GO OUTSIDE IN WHEELCHAIR WITH FAMILY MEMBER. PATIENT NAPPING AND VISITING WITH FAMILY DURING SHIFT. PATIENT PLEASANT AND COOPERATIVE BUT CAN BE ANXIOUS AND IMPULSIVE. PROBABLE DISCHARGE TOMORROW. CALL LIGHT IN REACH.
[2019-02-12 05:53] LABS: Alanine Aminotransfer (ALT/SGP 29 U/L (12-78); Albumin/Globulin Ratio 0.9 (0.8-1.8); Alk Phos 160 U/L (50-136); Anion Gap 8 mmol/L (6-16); Aspartate Aminotrans (AST/SGOT 35 U/L (12-37); Bilirubin, Total 1.1 mg/dL (0.1-1.0); Blood Urea Nitrogen 16 mg/dL (8-24); Bun/Creatinine Ratio 17.8 (12.0-20.0); CO2, Blood 28 mmol/L (21-32); Calcium, Blood 7.9 mg/dL (8.5-10.1); Chloride, Blood 107 mmol/L (98-108); Globulin, Blood 3.4 g/dL (2.2-4.0); Glomerular Filtration Rate >60 (60-); Glucose, Blood 132 mg/dL (70-99); Potassium, Blood 3.2 mmol/L (3.5-5.5); Sodium, Blood 143 mmol/L (136-145); Total Protein, Blood 6.4 g/dL (6.4-8.2)
--- NOTE | 2019-02-12 10:40 | NUR ---
DISCHARGE SUMMARY PATIENT DID LEAVE AMA. THE PATIENT WAS ADVISED WHAT THE POTENTIAL CONCERNS OF LEAVING AMA WOULD MEAN. PATIENT WAS AWARE OF THE CURRENT CONCERNS. DOCTOR IS AWARE OF THE PATIENT'S LEAVING AND HAS BEEN NOTIFIED. IRIS WAS FILLED OUT.
== END 2019-02-12 10:31 | disposition left against medical advice (07) | DRG 894 ==
LOC: ER 04:03 → MEDS 05:22 → ENPENDDIS 02-12 10:11 → MEDS 02-12 10:31
PROVIDERS: Emergency Medicine; Internal Medicine; ADMIT Family Medicine
DX: F10.239 Alcohol dependence with withdrawal, unspecified (principal); E87.6 Hypokalemia; W19.XXXA Unspecified fall, initial encounter; F17.210 Nicotine dependence, cigarettes, uncomplicated; J44.9 Chronic obstructive pulmonary disease, unspecified; F41.9 Anxiety disorder, unspecified; F43.10 Post-traumatic stress disorder, unspecified; Z86.718 Personal history of other venous thrombosis and embolism; Z88.0 Allergy status to penicillin; Z88.2 Allergy status to sulfonamides; Z85.118 Personal history of other malignant neoplasm of bronchus and lung; Z93.3 Colostomy status
CPT/HCPCS: 36415; 80053; 81001; 82550; 84443; 85025; 96365; 96375; 97165; 99285-25; G0480; J2060; J3411; J3475; J7042

== ENCOUNTER 2019-05-25 05:49 | Day surgery (SDC) | payer MEDICARE, OTHER ==
[~2019-05-25] VITALS: Ht 172.7 cm; Wt 80.4 kg
[~2019-05-25 05:49] MED LIST changes: +ACAMPROSATE CA333 MG PO; +ALBU90OI INH; +Atrovent Inha12.9 GM INH; +BUPR75 PO; +DIPH50 PO; +DRIZALMA SPRINK20 MG PO; +GABA100 PO; +HYDCOR10 PO; +IRON PO; +MAGNESIUM PO; +Requip3 MG PO; +SILD50TA PO; +THERA1 EACH PO; +TIZANIDINE HCL2 MG PO; +TRAZ50 PO; +VITAMIN D3 PO
--- NOTE | 2019-05-25 06:50 | NUR ---
Ambulatory in Day Surgery History, Chart, Medications and Allergies reviewed before start of procedure. Patient confirms NPO status and agrees with scheduled surgery. Patient States Post-Procedure ride home has been arranged. Pre-Op teaching done. Pt verbalizes understanding.
--- NOTE | 2019-05-25 07:22 | NUR ---
05/25/[address] HERE TO PROVIDE ANESTHESIA CARE, SEE RECORD. History, Chart, Medications and Allergies reviewed before start of procedure. PATIENT CONFIRMS NPO STATUS AND AGREES WITH SCHEDULED PROCEDURE. O2 VIA N/C INTACT THROUGHOUT SEDATION/PROCEDURE VIA NON-REBREATHER 10 L.
--- NOTE | 2019-05-25 07:44 | NUR ---
wake and taking in fluids.
--- NOTE | 2019-05-25 08:15 | NUR ---
Discharge instructions reviewed with patient. Patient verbalizes understanding. Copy given to patient to take home. Patient States Post-Procedure ride home has been arranged with Ezequiel, (friend). Gait is steady and no noted dizziness.
== END 2019-05-25 08:21 | disposition home or self-care (01) ==
LOC: ORSCMMR 05:49
PROVIDERS: Surgery
PROC: 0DBP8ZX Excision of Rectum, Via Natural or Artificial Opening Endoscopic, Diagnostic (ICD-10-PCS; principal; 2019-05-25 07:30)
DX: K62.5 Hemorrhage of anus and rectum (principal); K62.89 Other specified diseases of anus and rectum; K64.8 Other hemorrhoids; Z86.718 Personal history of other venous thrombosis and embolism; J44.9 Chronic obstructive pulmonary disease, unspecified; G47.33 Obstructive sleep apnea (adult) (pediatric); F41.8 Other specified anxiety disorders; F43.10 Post-traumatic stress disorder, unspecified; N40.0 Benign prostatic hyperplasia without lower urinary tract symptoms; Z79.899 Other long term (current) drug therapy; F17.210 Nicotine dependence, cigarettes, uncomplicated
CPT/HCPCS: 88305; J2704; J7120

== ENCOUNTER 2019-07-22 21:50 | Inpatient (IN) | payer OTHER, MEDICARE ==
[~2019-07-22] VITALS: Ht 180.3 cm; Wt 79.0 kg
[2019-07-22 22:17] LABS: Hematocrit 42.8 % (37.0-53.0); Hemoglobin 12.9 g/dL (13.5-17.5); Mean Corpuscular HGB 32.5 pg (26.0-34.0); Mean Corpuscular HGB Conc 30.1 g/dL (31.5-36.5); Mean Corpuscular Volume 108 fL (80-100); Mean Platelet Volume 11.7 fL (9.1-12.4); NRBC ABSOLUTE 0.12 K/mm3 (0.00-0.02); NRBC Auto 0.8 /100 WBC (0.0-0.2); Platelet Count 107 K/mm3 (150-400); RDW Coefficient Variation 12.7 % (11.7-14.2); RDW Standard Deviation 51.3 fL (35.1-46.3); Red Blood Cell Count 3.97 M/mm3 (4.30-5.90); White Blood Cell Count 14.91 K/mm3 (4.00-11.30)
[2019-07-22 22:25] LABS: PCO2 Arterial 81.4 mmHg (35-45); PO2 Arterial 117 mmHg (80-100); pH Blood Arterial <6.80 (7.35-7.45)
[2019-07-22 22:35] LABS: Albumin, Blood 2.6 g/dL (3.4-5.0); Albumin/Globulin Ratio 0.9 (0.8-1.8); Bilirubin, Total 0.8 mg/dL (0.1-1.0); Bun/Creatinine Ratio 13.3 (12.0-20.0); Calcium, Blood 9.2 mg/dL (8.5-10.1); Creatinine, Blood 2.11 mg/dL (0.60-1.20); Globulin, Blood 2.8 g/dL (2.2-4.0); Magnesium, Blood 2.4 mg/dL (1.6-2.4); Potassium, Blood 4.5 mmol/L (3.5-5.5); Total Protein, Blood 5.4 g/dL (6.4-8.2); Troponin I 0.033 ng/mL (0.000-0.040)
[2019-07-22 22:49] LABS: International Normalized Ratio 1.26; Prothrombin Time Results 13.3 Sec (9.7-11.5)
[2019-07-22] MEDS ORDERED: BUSP10 PO (23:09)
[2019-07-22] MEDS ORDERED: BUDE10.22 INH (23:09)
[2019-07-22] MEDS ORDERED: CALCIUM CARBON260 M1 PO (23:10)
[2019-07-22] MEDS ORDERED: HYDPAM50 PO (23:11)
[2019-07-22] MEDS ORDERED: MAGNESIUM OXID500 MG PO (23:11)
[2019-07-22] MEDS ORDERED: ONCE DAILY1 EACH PO (23:12)
[2019-07-22 23:13] LABS: BAND PERCENT MAN 13 % (0-8); BASOPHILS PERCENT MAN 0 % (0-2); EOSINOPHILS PERCENT MAN 0 % (0-6); LYMPHOCYTES ABSOLUTE MAN 7.75 K/mm3 (0.84-5.20); LYMPHOCYTES PERCENT MAN 52 % (21-46); METAMYELOCYTE ABSOLUTE MAN 0.29 K/mm3 (0.00-0.00); METAMYELOCYTE PERCENT MAN 2 % (0-0); MONOCYTES ABSOLUTE MAN 0.29 K/mm3 (0.16-1.47); MONOCYTES PERCENT MAN 2 % (4-13); MYELOCYTE ABSOLUTE MAN 0.14 K/mm3 (0.00-0.00); MYELOCYTE PERCENT MAN 1 % (0-0); NEUTROPHILS ABSOLUTE MAN 6.41 K/mm3 (1.96-9.15); SEG NEUTROPHILS PERCENT MAN 30 % (41-73); TOTAL CELLS COUNTED 100
[2019-07-22] MEDS ORDERED: Metamucil Smooth1 EA PO (23:13)
[2019-07-22] MEDS ORDERED: B-1100 M1 PO (23:14)
[2019-07-22] MEDS ORDERED: VITAMIN D32000 UNI3 PO (23:15)
[2019-07-22] MEDS ORDERED: MELATONIN5 M1 PO (23:17)
[2019-07-22] MEDS ORDERED: MAGNESIUM GLU27.5 MG PO (23:22)
[2019-07-22] MEDS ORDERED: Complex B-1001 EACH PO (23:22)
[2019-07-22] MEDS ORDERED: Omega 3 1,0001 EACH PO (23:22)
--- NOTE | 2019-07-23 00:52 | NUR ---
Admission/[place] of Care: Patient arrived to unit at 0015hr, via stretcher, accompanied by ED nurse and RT. Patient intubated, vent set to AC-16/500/5/60%, O2-92-94%, tolerating vent without difficulty. No sedation medications at this time. Patient unresponsive, no gag, cough, corneal, or plantar reflex. Pupils 2mm, with very sluggish and minimal constriction to light. Dopamine infusing through peripheral AC IV at 20mcg/kg/min upon arrival, systolic BP 90's, MAPs- 50's-70's. Peripheral IV's x2 patent and intact. Dr. Noe to immediately after arrival to unit. Placed central line to rt IJ without difficulty. X-ray to room at this time to confirm line placement. Received order for x1 NS liter bolus, infusing at this time. Bilateral soft wrist restraints in place to protect lines, tubes, cords. Plan to start levophed gtt and titrate Dopamine gtt off. Will continue to monitor.
[2019-07-23 02:39] LABS: Bun/Creatinine Ratio 11.7 (12.0-20.0); Calcium, Blood 7.4 mg/dL (8.5-10.1); Creatinine, Blood 2.47 mg/dL (0.60-1.20); Potassium, Blood 4.1 mmol/L (3.5-5.5)
[2019-07-23 03:02] LABS: Adenovirus Not Detected (NOT DETECT); Bordetella pertussis Not Detected (NOT DETECT); Chlamydophila pneumoniae Not Detected (NOT DETECT); Coronavirus 229E Not Detected (NOT DETECT); Coronavirus HKU1 Not Detected (NOT DETECT); Coronavirus NL63 Not Detected (NOT DETECT); Coronavirus OC43 Not Detected (NOT DETECT); Human Metapneumovirus Not Detected (NOT DETECT); Human Rhinovirus/Enterovirus Not Detected (NOT DETECT); Influenza A Not Detected (NOT DETECT); Influenza A/2009-H1 Not Detected (NOT DETECT); Influenza A/H1 Not Detected (NOT DETECT); Influenza A/H3 Not Detected (NOT DETECT); Influenza B Not Detected (NOT DETECT); Parainfluenza Virus 1 Not Detected (NOT DETECT); Parainfluenza Virus 2 Not Detected (NOT DETECT); Parainfluenza Virus 3 Not Detected (NOT DETECT); Parainfluenza Virus 4 Not Detected (NOT DETECT); Respiratory Syncytial Virus Not Detected (NOT DETECT)
[2019-07-23 03:03] LABS: Mycoplasma pneumoniae Not Detected (NOT DETECT)
[2019-07-23 04:07] LABS: PCO2 Arterial 53.7 mmHg (35-45); PO2 Arterial 83.5 mmHg (80-100)
[2019-07-23 04:08] LABS: pH Blood Arterial 7.11 (7.35-7.45)
[2019-07-23 05:35] LABS: Hemoglobin 13.4 g/dL (13.5-17.5); Mean Corpuscular HGB 32.8 pg (26.0-34.0); Mean Corpuscular HGB Conc 32.7 g/dL (31.5-36.5); Mean Platelet Volume 10.9 fL (9.1-12.4); NRBC ABSOLUTE 0.16 K/mm3 (0.00-0.02); NRBC Auto 2.5 /100 WBC (0.0-0.2); Platelet Count 73 K/mm3 (150-400); RDW Coefficient Variation 13.2 % (11.7-14.2); RDW Standard Deviation 49.1 fL (35.1-46.3); Red Blood Cell Count 4.09 M/mm3 (4.30-5.90); White Blood Cell Count 6.38 K/mm3 (4.00-11.30)
[2019-07-23 05:58] LABS: Albumin, Blood 2.1 g/dL (3.4-5.0); Albumin/Globulin Ratio 0.8 (0.8-1.8); Bilirubin, Total 1.5 mg/dL (0.1-1.0); Bun/Creatinine Ratio 12.7 (12.0-20.0); Calcium, Blood 7.2 mg/dL (8.5-10.1); Creatinine, Blood 2.44 mg/dL (0.60-1.20); Globulin, Blood 2.8 g/dL (2.2-4.0); Total Protein, Blood 4.9 g/dL (6.4-8.2)
[2019-07-23 06:09] LABS: Mean Corpuscular Volume 100 fL (80-100)
[2019-07-23 06:28] LABS: Creatine Kinase MB 54.7 ng/mL (0.0-3.6); Creatine Kinase MB Index 1.8 (0.0-4.0)
--- NOTE | 2019-07-23 06:31 | NUR ---
Shift Summary: After central line placed to rt IJ, Levophed gtt started at 10mcg/min, and Dopamine gtt decreased from 20mcg/kg/min to 10mcg/kg/min. Change in pressures initiated r/t continued HR int the 120's and occasionally increasing to the 130's (plan confirmed with Dr. Noe). Blood pressures then decreased from systolic 80's-90's to 70's. Levophed gtt then increased to 18mcg/min and Dr. Noe notified. Blood pressures continued to be low, Levophed gtt titrated up to 30mcg/min and Dopamine gtt decreased to 6mcg/kg/min. Dr. Noe then arrived to patient's room. Dr. Noe then placed arterial line to patient rt femoral without difficulty. Arterial line shows systolic BP's 90's-low 100's, MAPs 58-60's. Discussed current treatment with Dr. Noe and instructed to maintain current use of pressors and call if BP decreases or HR increases. Dr. Coombs to then to unit late this shift, and agreed with current treatment. BP remained stable with MAP's high 50's-low 60's throughout remainder of shift. approx 10ml urine output in humphries tubing, Dr. Noe and Dr. Coombs both aware. Discussed code status with patient's daughter. After she was able to speak with patient's son, anson florence made to change patient to DNR status but maintain current tx. Call placed to Dr. Noe and order changed to DNR. Patient continues to be unresponsive, although some facial grimace noted with oral care. No purposeful movement noted, occasional tonic jerky movements of all extremities noted. Patient's son and daughter at bedside at this time. Will continue to monitor until report to day shift RN.
--- NOTE | 2019-07-23 09:18 | NUR ---
CARE ASSUMED ASSESSMENT COMPLETED. PT HAS MINIMAL RESPONSE TO PAIN, OCCASIONAL GRIMACING NOTED. NO GAG/COUGH, NO MOVEMENT NOTED, PT AGONAL AT TIMES, PUPILS SLUGGISH BUT EQUAL, NO PLANTAR REFLEXES PRESENT. VENT SETTINGS AC 16, Vt 550, FIO2 80%, PEEP 5. LS COARSE IN R BASE, OTHERWISE CLEAR. HR 120'S SIT, MAP 60, VASO 0.4, LEVO 30, DOPAMINE 6, WILL TITRATE TO EFFECT. SKIN MOTTLED IN ALL EXTREMS AND LOWER TORSO, EXTREMS COOL TO TOUCH, LE PULSES ABSENT, UE PULSES FAINT, CENTRAL PULSES STRONG. ARTERIAL LINE TO RIGHT FEMORAL ARTERY WNL, ZEROED AT THIS TIME. FAMILY AT BEDSIDE, RENAL US, VENOUS DOPPLER STUDY, AND ECHO COMPLETED. BICARB INFUSING PER ORDERS.
--- NOTE | 2019-07-23 09:46 | NUR ---
UPDATE PRESSURES AND HR DROPPING DESPITE INCREASES IN PRESSORS, DR. WHITLOCK NOTIFIED, AT BEDSIDE AT THIS TIME, NEW ORDERS. FAMILY UPDATED BY
[2019-07-23 10:24] LABS: Hemoglobin 13.7 g/dL (13.5-17.5); Mean Corpuscular HGB 32.5 pg (26.0-34.0); Mean Corpuscular HGB Conc 29.1 g/dL (31.5-36.5); NRBC ABSOLUTE 0.32 K/mm3 (0.00-0.02); NRBC Auto 3.1 /100 WBC (0.0-0.2); Platelet Count 75 K/mm3 (150-400); RDW Coefficient Variation 14.4 % (11.7-14.2); RDW Standard Deviation 59.5 fL (35.1-46.3); Red Blood Cell Count 4.21 M/mm3 (4.30-5.90); White Blood Cell Count 10.35 K/mm3 (4.00-11.30)
[2019-07-23 10:29] LABS: Mean Corpuscular Volume 112 fL (80-100)
[2019-07-23 10:35] LABS: PCO2 Arterial 47.2 mmHg (35-45); PO2 Arterial 122 mmHg (80-100)
--- NOTE | 2019-07-23 10:37 | NUR ---
Echocardiogram using 0.6ml of Definity contrast performed.
[2019-07-23 10:39] LABS: pH Blood Arterial 6.88 (7.35-7.45)
[2019-07-23 10:46] LABS: Albumin, Blood 2.2 g/dL (3.4-5.0); Bilirubin, Total 2.1 mg/dL (0.1-1.0); Bun/Creatinine Ratio 11.8 (12.0-20.0); Calcium, Blood 7.6 mg/dL (8.5-10.1); Creatinine, Blood 2.62 mg/dL (0.60-1.20); Magnesium, Blood 2.8 mg/dL (1.6-2.4); Potassium, Blood 5.1 mmol/L (3.5-5.5)
[2019-07-23 10:54] LABS: Albumin/Globulin Ratio 0.8 (0.8-1.8); Globulin, Blood 2.9 g/dL (2.2-4.0); Total Protein, Blood 5.1 g/dL (6.4-8.2)
[2019-07-23 11:02] LABS: BAND PERCENT MAN 18 % (0-8); BASOPHILS PERCENT MAN 0 % (0-2); EOSINOPHILS PERCENT MAN 0 % (0-6); LYMPHOCYTES % ATYPICAL MANUAL 2 % (0-0); LYMPHOCYTES ABSOLUTE MAN 3.82 K/mm3 (0.84-5.20); LYMPHOCYTES PERCENT MAN 35 % (21-46); METAMYELOCYTE ABSOLUTE MAN 0.62 K/mm3 (0.00-0.00); METAMYELOCYTE PERCENT MAN 6 % (0-0); MONOCYTES ABSOLUTE MAN 0.31 K/mm3 (0.16-1.47); MONOCYTES PERCENT MAN 3 % (4-13); MYELOCYTE PERCENT MAN 2 % (0-0); NEUTROPHILS ABSOLUTE MAN 5.38 K/mm3 (1.96-9.15); SEG NEUTROPHILS PERCENT MAN 34 % (41-73); TOTAL CELLS COUNTED 100
--- NOTE | 2019-07-23 11:16 | NUR ---
UPDATE BP RESPONDED WELL TO LR BOLUS, DOPAMINE TITRATED OFFF. AWARE OF LAB RESULTS, WILL ADMINISTER BICARB AND CALCIUM PER ORDERS AND ATTEMPT TO TITRATE LEVO DOWN. PT REPOSITIONED, ORAL SUCTIONING DONE, SCDS APPLIED. WILL ADVANCE NGT 7CM PER ORDERS. NO CHANGES TO VENT SETTINGS.
--- NOTE | 2019-07-23 12:09 | NUR ---
UPDATE PT'S CIRCULATION IMPROVING WITH FLUID BOLUSES, FAINT PULSES PALPABLE IN ALL EXTREMS, CAP REFILL REMAINS SLUGGIS BUT APPEARS TO BE IMPROVING. MOTTLING REMAINS, EXTREMS WARM TO TOUCH. NO CHANGES IN NEURO STATUS, NO CHANGES TO VENT SETTINGS. R IJ CL AND R FEM ART LINE WNL. LEVO 28MCG, VASO 0.4U, WILL CONTINUE TO TITRATE ABLE.
--- NOTE | 2019-07-23 14:37 | NUR ---
UPDATE DR. BARGER IN TO ASSESS, EKG COMPLETED AT THIS TIME FOR NEW T WAVE INVERSION, EKG REVIEWED BY DR. BARGER, NO NEW ORDERS. WILL REDRAW LABS SCHEDULED. TITRATING LEVO ABLE. PT RESTING QUIETLY, RR 16/MIN, SPO2 100%. VENT SETTINGS AC 16, Vt 550, FIO2 75%, PEEP 5. FAMILY REMAINS AT BEDSIDE.
--- NOTE | 2019-07-23 15:30 | NUR ---
Spiritual care visit conducted. After being called by Palliative Care RN Anamaria Miramontes, I entered patient's room. Patient's son Kevin, and daughter, Mariely, are bedside and grieving appropriately. They tell me briefly about the very painful life the patient led and that he made their lives difficult as well. They explain that patient is a [employer]ism and they agree that a prayer would be helpful. I gladly provide prayer, grief support and a calming presence. Kevin and Mariely remain very quiet so I allow them time to process without further interruption. I will continue to remain available to family.
--- NOTE | 2019-07-23 15:31 | NUR ---
END OF LIFE NOTE: MONITOR BEGINS TO ALARM ASYSTOLE - THIS RN TO BEDSIDE. PALPABLE PULSE AND MONITOR THEN SHOWS RHYTHM WITH RATE 70'S, ART LINE CONTINUES TO SHOW BLOOD PRESSURE SYSTOLIC 90'S. RHYTHM THEN CHANGES AGAIN TO COMPLETE HEART BLOCK/ASYSTOLE WITH LOSS OF PULSE. PT'S SON AT BEDSIDE CONFIRMS DNR STATUS. MONITOR THEN SHOWS RHYTHM AND PULSE AGAIN PALPABLE. 1MG EPI PUSH GIVEN. MONITOR THEN BACK TO ASYSTOLE, LOSS OF PULSE. DR WHITLOCK TO BEDSIDE, DISCUSSING SITUATION WITH PT' SON. RHYTHM AND PULSE AGAIN OBTAINED, ADDITIONAL 1MG EPI PUSH GIVEN. THIS PATTERN CONTINUES FOR SEVERAL MINUTES WITH FINAL LOSS OF PULSE WITH NO RHYTHM RETURN. DR WHITLOCK WITH BEDSIDE ULTRASOUND OF HEART SHOWING NO MOVEMENT. TIME OF CALLED AT 1510.
--- NOTE | 2019-07-23 15:52 | NUR ---
called to icu pt sudden cardiac event . Chaplian called and supportive care and planning with family.
--- NOTE | 2019-07-23 17:14 | NUR ---
family left review of funneral called ricardo pt prepaid a funneral.assisted with estate and funneral planning.
== END 2019-07-23 15:10 | DRG 309 ==
LOC: ER 21:50 → ICUW 23:59
PROVIDERS: Emergency Medicine; Internal Medicine Critical Care Medicine; ADMIT Internal Medicine
PROC: 0BH18EZ Insertion of Endotracheal Airway into Trachea, Via Natural or Artificial Opening Endoscopic (ICD-10-PCS; 2019-07-22)
PROC: 5A1935Z Respiratory Ventilation, Less than 24 Consecutive Hours (ICD-10-PCS; 2019-07-22)
PROC: 02HV33Z Insertion of Infusion Device into Superior Vena Cava, Percutaneous Approach (ICD-10-PCS; principal; 2019-07-23)
PROC: 3E043XZ Introduction of Vasopressor into Central Vein, Percutaneous Approach (ICD-10-PCS; 2019-07-23)
DX: I44.2 Atrioventricular block, complete (principal); N17.9 Acute kidney failure, unspecified; E87.2 Acidosis; J44.9 Chronic obstructive pulmonary disease, unspecified; K70.30 Alcoholic cirrhosis of liver without ascites; Z90.2 Acquired absence of lung [part of]; F43.10 Post-traumatic stress disorder, unspecified; F17.210 Nicotine dependence, cigarettes, uncomplicated; Z86.711 Personal history of pulmonary embolism; E66.9 Obesity, unspecified; I46.2 Cardiac arrest due to underlying cardiac condition; Z68.24 Body mass index [BMI] 24.0-24.9, adult; E86.0 Dehydration; F10.20 Alcohol dependence, uncomplicated
CPT/HCPCS: 0099U; 31500; 31720; 36415; 36556; 36600; 36620; 51702; 70450; 71045; 76770; 80048; 80053; 82140; 82330; 82550; 82553; 82803; 83605; 83735; 83880; 84100; 84484; 85025; 85027; 85610; 85730; 87040; 90686; 93005; 93010; 93970; 94002; 94003; 94640; 96365-59; 96366-59; 96368; 99291-25; 99292; C1751; C8929; C9113; G0480; J0692; J1265; J1650; J1956; J2250; J3370; J3411; J7030; J7050; J7060; J7070; J7120; Q9957